=== PATIENT | male | born 1965 | race Two or more races ===

== ENCOUNTER 2018-12-06 12:32 | Inpatient (IN) | payer OTHER ==
[~2018-12-06] VITALS: Ht 172.7 cm; Wt 77.1 kg
[2018-12-21] MEDS ORDERED: PROZAC20 MG PO (10:27)
[2018-12-28] MEDS ORDERED: CLONAZEPAM0.5 MG (08:28)
[2019-01-01] MEDS ORDERED: ULTRACET PO (09:48)
[2019-01-01] MEDS ORDERED: INTEGRA F CAPS1 EACH PO (09:49)
[2019-01-01] MEDS ORDERED: INTESTINEX680 M1 PO (09:49)
== END 2019-01-01 11:07 | disposition home or self-care (01) | DRG 331 ==
LOC: SURG 12-28 07:00 → O/R 12-28 08:07 → SURG 12-28 08:30 → SURH 12-28 17:56 → SURG 12-28 19:58 → SURH 12-28 20:04 → SURG 12-28 20:29
PROVIDERS: ADMIT Surgery
PROC: 0DTU4ZZ Resection of Omentum, Percutaneous Endoscopic Approach (ICD-10-PCS; 2018-12-28)
PROC: 4A033R1 Measurement of Arterial Saturation, Peripheral, Percutaneous Approach (ICD-10-PCS; 2018-12-28)
PROC: 4A12X4Z Monitoring of Cardiac Electrical Activity, External Approach (ICD-10-PCS; 2018-12-28)
PROC: 0DTF4ZZ Resection of Right Large Intestine, Percutaneous Endoscopic Approach (ICD-10-PCS; principal; 2018-12-28 07:00)
DX: D12.2 Benign neoplasm of ascending colon (principal); G47.33 Obstructive sleep apnea (adult) (pediatric); F41.8 Other specified anxiety disorders; R73.01 Impaired fasting glucose

== ENCOUNTER 2020-02-05 06:05 | Day surgery (SDC) | payer OTHER ==
[~2020-02-05 06:05] MED LIST: CLONAZEPAM0.5 MG; INTEGRA F CAPS1 EACH PO; INTESTINEX680 M1 PO; PROZAC20 MG PO; ULTRACET PO
== END 2020-02-05 12:00 | disposition home or self-care (01) ==
LOC: AMB-ENDOS 06:05
PROVIDERS: ATTEND Surgery
DX: K62.89 Other specified diseases of anus and rectum (principal); K64.8 Other hemorrhoids; Z20.828 Contact with and (suspected) exposure to other viral communicable diseases